=== PATIENT | male | born 1995 | race Caucasian/White ===

== ENCOUNTER 2021-01-18 16:29 | Outpatient (REF) | payer BC, SELFPAY | END 2021-01-18 16:30 | disposition home or self-care (01) | LOC: HO.LNP 16:29 | PROVIDERS: Visit Provider Internal Medicine | DX: Z20.822 Contact with and (suspected) exposure to COVID-19 (principal) | CPT/HCPCS: U0003; U0005 ==

== ENCOUNTER 2023-06-29 09:46 | Outpatient (AMB) | payer OTHER, SELFPAY ==
[2023-06-29 11:51] VITALS: BP 104/62; PULSE 65; TEMP 36.7; O2SAT 98
--- NOTE | 2023-06-29 11:51 | AM.OFFWIN_ITS ---
Intake Vital Signs 06/29/23 11:51 Height 5 ft 10 in BP 104/62 Blood Pressure Location Rt brachial Position Sitting Pulse 65 Pulse Source Pulse Oximeter Temp 98.0 F Temp Source Temporal Artery Scan Pulse Oximetry (%) 98 Oxygen Delivery Method Room Air Intake Visit Reasons: EST/lump right side neck(lobby) Intake Note: pt is here for c.o lump on right side of neck, denies pain noticed it about 3 weeks ago and it hasnt went away. patient also states he has a rash, raised bumps on his arms and chest, denies any new medcations or new foods, and somet imes can be itchy. pt states its been there for about 2 weeks Patient Tobacco Use Status: Never used Tobacco Allergies No Known Allergies Allergy (Verified 06/29/23 12:08) Medication List - Last Reconciled 06/29/23 by Cinthya Tidwell CNP No Known Home Meds Do you need a note to return to daycare/school/sports/work: Yes HPI HPI Comments History of Present Illness Details 27-year-old male presents to [facility] complaining of a lump on right side of neck that he initially noticed 3 weeks ago. He denies pain at site of lump, denies recent virus or cold, and denies trauma, injury or new strenuous activity. He also reports scattered rash, raised bumps on arm and chest. He denies new medication, soaps, detergent, perfumes, or contact with new pet. He denies fever, chills, CP, SOB, headache, muscle aches, dizziness, neck pain, abdominal pain, nausea, vomiting, changes in bowels or bladder. Upon physical exam, right neck lump palpable, pea size, soft and pliable, appears to be mild swollen lymph node. Inspection of rash; non raised, very few, 1 on right shoulder, one on lower abd, and one on left upper chest, appears to be healing hives. [facility] Family History Mother No problems noted. Father Substance use disorder Maternal Grandfather Breast cancer Paternal Grandfather Diabetes Cancer Social History Housing: House Alcohol intake: current Alcohol intake frequency: a few times a month Patient Tobacco Use Status: Never used Tobacco e-Cigarette/Vaping Use: Never Used Second Hand Smoke Exposure: Yes service: No Current occupational status: employed Current occupation: [employer] Current occupational exposures/hazards: No Cognitive needs: No Hearing needs: No Vision needs: No Review of Systems Const All systems reviewed & are unremarkable except as noted in HPI and below Physical Exam Vital Signs: Last Vital Signs Temp 98.0 F 06/29/23 11:51 Pulse 65 06/29/23 11:51 BP 104/62 06/29/23 11:51 Pulse Ox 98 06/29/23 11:51 Oxygen Delivery Method Room Air 06/29/23 11:51 Const General: healthy appearing and no acute distress Nutritional Appearance: well nourished Orientation/consciousness: patient oriented x3 Limitations: no limitations HEENT Head: Yes normal to inspection, Yes normocephalic and Yes atraumatic Ears: hearing grossly normal bilaterally and TM's normal bilaterally Face and sinus: Yes normal facial exam Mouth: moist mucous membranes Throat: Yes posterior oropharynx normal Eyes General: appearance normal, both eyes and all related structures Neck Neck: Yes full ROM, Yes no meningeal signs, Yes trachea midline, Yes supple, Yes no JVD and Yes other (right cervical, pea size slightly enlarged lymph node, non tender, pliable) Carotids: normal carotid upstroke Lymphatic: lymphadenopathy right anterior cervical single, small, soft, mobile and other (non tender) Chest Chest palpation & inspection: normal inspection of the chest Resp Effort & Inspection: normal respiratory effort Auscultation: clear to auscultation bilaterally Cardio Rate: regular rate Rhythm: regular rhythm Heart sounds: S1 normal heart sound present and S2 normal heart sound present Peripheral pulses: Peripheral pulses 2+ throughout Skin Other: very few non raised rash,non crusted, 1 on right shoulder, one on lower abd, and one on left upper chest, appears to be healing hives. Neuro General: patient oriented x3, gait normal, moves all extremities, no meningeal signs and no focal motor deficits Extrem General: Yes normal to inspection, Yes capillary refill normal and Yes no clubbing, cyanosis or edema Psych Appearance: well kempt Mental Status: mental status grossly normal Speech and movement: Normal speech and movement present Affect: normal affect Attitude: cooperative Assessment & Plan Assessment & Plan (1) Allergic (intrinsic) eczema: Code(s): L20.84 - Intrinsic (allergic) eczema Plan: 27-year-old male seen today in office for lump on right side of neck, noticed 3 weeks ago, and reported rash x1 week. Physical exam reveals slightly enlarged right anterior cervical lymph node, pea size, non tender with associated rash on shoulder, chest and abdomen that appears to be healing. Most likely due to allergic reaction to non known source, could be dust or animal dander. -- Will treat with Singular 10 mg po qhs; or may take over the counter benadryl; instructed he should not need both. -- Encouraged to follow up with PCP -- He will return to this office for any worsening or unresolved symptoms. Medications: New montelukast 10 mg PO BEDTIME 10 tabs 0RF L20.84 - Intrinsic (allergic) eczema Coding Level of Care Code Est Pt Level 3 (57142) Diagnoses Allergic (intrinsic) eczema L20.84
== END 2023-06-29 12:23 | disposition home or self-care (01) ==
PROVIDERS: PCP Nurse Practitioner Family; Visit Provider Nurse Practitioner Acute Care
DX: L20.84 Intrinsic (allergic) eczema (principal)
CPT/HCPCS: 99051; 99213

== ENCOUNTER 2024-09-02 10:11 | Outpatient (AMB) | payer OTHER, SELFPAY ==
--- NOTE | 2024-09-02 10:14 | MHC.PC.OV ---
Vital Signs 09/02/24 10:15 Height 5 ft 10 in Weight 198 lb BMI 28.4 BP 112/70 Blood Pressure Location Lt brachial Position Sitting Pulse 58 Pulse Source Pulse Oximeter Pulse Oximetry (%) 99 Intake Visit Reasons: PE Intake Note: Pt is here today for his annual physical. Allergies No Known Allergies Allergy (Verified 09/02/24 11:37) Medication List - Last Reconciled 09/02/24 by LIZETH Mulligan No Known Home Meds Tobacco use date assessed: 09/02/24 Dental Screening Dental Screen Date: 09/02/24 Did you have a dental visit in the last 12 months?: Yes Did you have a dental problem in the last 6 months where you did not have access to dental care?: No Was dental information given to patient?: Patient has dentist HPI PE HPI Details History of Present Illness The patient is a 29-year-old male presenting for a physical examination. He recounts experiencing lower back pain, having started after a deadlift incident less than a year ago, where he felt a pop in his right lower back. Since then, intermittent severe muscle spasms have been reported, which are described as causing a temporary locking sensation followed by acute pain. In terms of dermatological findings, he denies gastrointestinal or respiratory symptoms, but presents with several scalp lesions, primarily macular, with a large papillary lesion on the left side. He also has a large mole on the upper chest and macular, dry-appearing lesions on the shoulder area, suggestive of tinea corporis. Furthermore, he negates any psychological symptoms of anxiety or depression. Health Maintenance - Referral to Slackline Operator for evaluation of scalp lesions and nevus - Referral for evaluation of macular lesions on shoulders Social History Review of Systems - Skin: Reports scalp lesions, macular shoulder lesions, large chest mole - Musculoskeletal: Reports right lower back pain after deadlifting, severe muscle spasms suggested - Psychiatric: Denies anxiety, depression, suicidal ideation, homicidal ideation - Respiratory: Denies chest pain, shortness of breath - Gastrointestinal: Denies abdominal pain, blood in stool, constipation, diarrhea Physical Exam General: Cooperative, healthy appearing, comfortable, no acute distress and well developed Orientation: Patient oriented x3 Limitations: No limitations Head: Normal to inspection Ears: Hearing grossly normal bilaterally Nose: Normal external nose present Face and sinus: Normal facial exam Eyes: Appearance normal, both eyes and all related structures Neck: Normal visual inspection and Yes full ROM Respiratory: Normal respiratory effort and able to speak in complete sentences. Clear to auscultation bilaterally Cardiovascular: sylvia (athlete) and rhythm. Normal S1 and S2 GI: Normal to inspection. Soft to palpation and nontender Skin: Several scalp lesions, mostly macular, with a larger papillary lesion on the left side of the head. Large mole on the upper chest. Macular, somewhat dry appearing lesions on bilateral anterior shoulders, appears to be tinea. Neuro: Patient oriented x3 Extremities: Normal to inspection. neg straight leg raises, neg heel and toe walking Results Plan I will refer for dermatological evaluation of scalp lesions and chest nevus. For suspected tinea corporis, initiation of topical antifungal therapy is recommended. Due to the history of lower back pain with spasms post-deadlifts, an X-ray of the lumbar spine will be conducted to assess the need for further management. Discussion Notes I discussed with the patient the rationale for the referral to a architectural manager, explaining the possible need for monitoring the skin lesions given their characteristics. I advised on the initiation of a topical antifungal treatment for suspected tinea corporis to alleviate symptoms. We discussed the importance of imaging studies for his back pain, specifically with an X-ray, to rule out structural issues. The patient has been informed about potential outcomes of these evaluations and possible next steps based on the findings. Follow-up appointments will be contingent on the results from the architectural manager and imaging studies. Patient Instructions - Follow up with a architectural manager as referred for scalp and chest evaluations - Begin using the prescribed topical antifungal cream for shoulder lesions - Schedule an X-ray of the lumbar spine to further assess lower back pain, encouraged stretching routine - Monitor for any new or worsening symptoms and seek medical attention as needed - Maintain a record of any unusual skin changes, particularly during the time before dermatological evaluation [facility] Family History Mother No problems noted. Father Substance use disorder Maternal Grandfather Breast cancer Paternal Grandfather Diabetes Cancer Social History Housing: House Alcohol intake: current Alcohol intake frequency: a few times a month Patient Tobacco Use Status: Never used Tobacco e-Cigarette/Vaping Use: Never Used Second Hand Smoke Exposure: Yes service: No Current occupational status: employed Current occupation: [employer] Current occupational exposures/hazards: No Cognitive needs: No Hearing needs: No Vision needs: No Questionnaire PHQ-9 Over the last 2 weeks, how often have you been bothered by any of the following problems? 1. Little interest or pleasure in doing things: not at all 2. Feeling down, depressed, or hopeless: not at all 3. Trouble falling or staying asleep, or sleeping too much: not at all 4. Feeling tired or having little energy: more than half the days 5. Poor appetite or overeating: not at all 6. Feeling bad about yourself - or that you are a failure or have let yourself or your family down: not at all 7. Trouble concentrating on things, such as reading the newspaper or watching television: not at all 8. Moving or speaking so slowly that other people could have noticed. Or the opposite - being so fidgety or restless that you have been moving around a lot more than usual: not at all 9. Thoughts that you would be better off or of hurting yourself in some way: not at all Total score: 2 Depression Screening Interpretation: Negative Depression Screening Done: Yes 25266 - PHQ-9 Billing: Yes Source: Developed by Drs. Jamie Chilel, Candelaria Rebolledo, Jean-Claude Buckley and colleagues, with an educational mariam from [employer]. Thrive Questionnaire Date Thrive assessed: 09/02/24 I am a: Patient What is your living situation today?: I have a steady place to live Within the past 12 months, did the food you bought not last and you didn't have the money to get more?: Never true Within the past 12 months, did you worry whether your food would run out before you got money to buy more?: Never true Do you have trouble paying for medicines?: No Do you have trouble getting transportation to medical appointments?: No Do you have trouble paying your heating and electricity bill?: No Do you have trouble taking care of your child, family member or friend?: No Do you have trouble with day-to-day activities such as bathing, preparing meals, shopping, managing finances, etc.?: No Are you currently unemployed and looking for a job?: No Are you interested in more education?: No Please select the resources that you would like help with: None Currently or been in a relationship where the following occur: No concerns reported THRIVE Score: 0 AUDIT C Alcohol Use Questionnaire (AUDIT-C) 1. How often do you have a drink containing alcohol?: Monthly or less 2. How many drinks containing alcohol do you have on a typical day when you are drinking?: 3 or 4 3. How often do you have six or more drinks on one occasion?: Never Total Score: 2 Score Reviewed/Action Taken: Yes CEZAR-7 AMB Questionnaire CEZAR-7 Date CEZAR - 7 assessed: 09/02/24 Feeling nervous, anxious, or on edge: 0 = Not at all Not being able to stop or control worryin = Not at all Worrying too much about different things: 0 = Not at all Trouble relaxin = Not at all Being so restless that it is hard to sit still: 0 = Not at all Becoming easily annoyed or irritable: 1 = Several days Feeling afraid as if something awful might happen: 0 = Not at all Total CEZAR-7 score (0-4 normal; 5-9 mild; 10-14 moderate; 15-21 severe): 1 Source: Developed by Drs. Jamie Chilel, Candelaria Rebolledo, Jean-Claude Buckley and colleagues, with an educational mariam from [employer]. CEZAR-7 Assessment Billing CEZAR-7 Assessment Tool: CEZAR-7 Assessment 10145 Physical exam (Primary Care) Vital Signs: Last Vital Signs Pulse 58 09/02/24 10:15 BP 112/70 09/02/24 10:15 Pulse Ox 99 09/02/24 10:15 BMI result Body Mass Index 28.4 Tobacco/Smoking Status: Tobacco use Status Tobacco use date assessed 09/02/24 09/02/24 10:17 Patient Tobacco Use Status Never used Tobacco 09/02/24 10:17 e-Cigarette/Vaping Use Never Used 09/02/24 10:17 PHQ-9: PHQ-9 Score PHQ-9: Total score 2 09/02/24 11:27 Depression Screening Interpretation: Negative Thrive Assessment: Date of Thrive Assessment Date Thrive assessed 09/02/24 09/02/24 10:17 Currently or been in a relationship where the following occur: No concerns reported Coding Level of Care Code Est Pt Prev Care 18-39y(51214) Diagnoses Physical exam Z00.00 Skin lesions L98.9 Lower back pain M54.50 Additional Codes CEZAR-7 Assessment Billing - CEZAR-7 Assessment Tool: CEZAR-7 Assessment 34158 ([id number]) PHQ-9 - 41605 - PHQ-9 Billing: Yes ([id number]) Assessment & Plan Assessment & Plan (1) Physical exam: Code(s): Z00.00 - Encounter for general adult medical examination without abnormal findings Category: Medical (2) Skin lesions: Code(s): L98.9 - Disorder of the skin and subcutaneous tissue, unspecified Category: Medical (3) Lower back pain: Code(s): M54.50 - Low back pain, unspecified Category: Medical Plan . Orders: Orders Complete Blood Count Auto Diff Today Z00.00 - Encounter for general adult medical examination without abnormal findings Comprehensive [place]. Panel Fast Today Z00.00 - Encounter for general adult medical examination without abnormal findings Lipid Panel Today Z00.00 - Encounter for general adult medical examination without abnormal findings XR lumbar spine 2-3V Today M54.50 - Low back pain, unspecified TSH reflex Free T4 Today Z00.00 - Encounter for general adult medical examination without abnormal findings UA CC w/rflx Micro + Cult Today Z00.00 - Encounter for general adult medical examination without abnormal findings Referrals Dermatology Referral L98.9 - Disorder of the skin and subcutaneous tissue, unspecified Medications: New ketoconazole 2% 1 appl topical BID 30 grams 0RF
[2024-09-02 10:15] VITALS: BP 112/70; PULSE 58; O2SAT 99; BMI 28.4
== END 2024-09-02 11:41 | disposition home or self-care (01) ==
LOC: HO.HMCC 10:12
PROVIDERS: PCP Nurse Practitioner Family; Visit Provider Nurse Practitioner Family
DX: Z00.00 Encounter for general adult medical examination without abnormal findings (principal); L98.9 Disorder of the skin and subcutaneous tissue, unspecified; M54.50 Low back pain, unspecified

== ENCOUNTER → 2024-09-02 10:11 | Outpatient (BNVA) | payer OTHER, SELFPAY | PROVIDERS: PCP Nurse Practitioner Family; Visit Provider Nurse Practitioner Family | DX: Z00.00 Encounter for general adult medical examination without abnormal findings (principal); L98.9 Disorder of the skin and subcutaneous tissue, unspecified; M54.50 Low back pain, unspecified | CPT/HCPCS: 96127 ==